=== PATIENT | female | born 1990 | race American Indian/Alaskan Native ===

== ENCOUNTER 2016-11-06 06:19 | Emergency (ER) | payer SELFPAY ==
[2016-11-06 06:36] VITALS: BP 124/95
[2016-11-06] MEDS ORDERED: ZOFRAN ODT PO ONE (07:38)
[2016-11-06] MEDS ORDERED: FIORICET PO ONE (07:38)
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
== END 2016-11-06 10:04 | disposition home or self-care (01) ==
LOC: ED 06:19
DX: S00.83XA Contusion of other part of head, initial encounter (principal); H11.32 Conjunctival hemorrhage, left eye; J32.9 Chronic sinusitis, unspecified; R51 Headache; F41.9 Anxiety disorder, unspecified; F17.200 Nicotine dependence, unspecified, uncomplicated; Y04.2XXA Assault by strike against or bumped into by another person, initial encounter; Y93.89 Activity, other specified; Y99.9 Unspecified external cause status; Y92.89 Other specified places as the place of occurrence of the external cause
CPT/HCPCS: 70450; 70486; 81025; Q0162

== ENCOUNTER 2017-09-04 16:47 | Emergency (ER) | payer SELFPAY ==
[2017-09-04 17:04] VITALS: BP 106/56
[2017-09-04 17:32] LABS: Basophils % (Auto) 0.3 % (0.0-1.8); Hematocrit 35.2 % (30.3-42.9); Hemoglobin 11.3 gm/dl (10.1-14.3); Lymphocytes # (Auto) 1.5 K/mm3 (1.2-5.4); Lymphocytes % (Auto) 8.8 % (13.4-35.0); Mean Corpuscular HGB Conc 32 % (30-34); Mean Corpuscular Hemoglobin 24 pg (28-32); Mean Corpuscular Volume 74 fl (79-97); Monocytes # (Auto) 0.5 K/mm3 (0.0-0.8); Monocytes % (Auto) 3.1 % (0.0-7.3); Platelet Count 360 K/mm3 (140-440); Red Blood Count 4.77 M/mm3 (3.65-5.03); Red Cell Distribution Width 18.3 % (13.2-15.2)
[2017-09-04 17:52] LABS: Bacteria,Urine 4+ /HPF (Negative); Bilirubin,Urine NEG (Negative); Blood,Urine NEG (Negative); Color,Urine Yellow (Yellow); Mucus,Urine FEW /HPF; RBC,Urine < 1.0 /HPF (0.0-6.0); Urobilinogen,Urine < 2.0 mg/dL (<2.0)
[2017-09-04 17:54] LABS: Alanine Aminotransferase 12 units/L (7-56); Albumin 4.5 g/dL (3.9-5); BUN/Creatinine Ratio 24; Blood Urea Nitrogen 17 mg/dL (7-17); Calcium 9.2 mg/dL (8.4-10.2); Hemolysis Index 6; Lipase 29 units/L (13-60)
== END 2017-09-04 17:41 | disposition left against medical advice (07) ==
LOC: ED 16:47
DX: R10.9 Unspecified abdominal pain (principal); Z53.21 Procedure and treatment not carried out due to patient leaving prior to being seen by health care provider
CPT/HCPCS: 36415; 80053; 81001; 83690; 85025